=== PATIENT | male | born 1965 | race African-American/Black ===

== ENCOUNTER 2016-12-19 09:19 | Emergency (ER) | payer OTHER ==
[2016-12-19 09:41] VITALS: BP 122/75
--- NOTE | 2016-12-19 10:25 | ED Physician Documentation ---
Nausea/Vomiting/Diarrhea - HISTORIAN Historian: patient - HPI Stated Complaint: nausea vomiting diarrhea Chief Complaint: Nausea,Vomiting,Diarrhea Additional Information: this happens occasional after dialysis, he had dialysis yesterday. denies bad food Onset: hours Duration: constant Last known Well Code/Unknown Code: Unknown Timing: gradual onset Context: denies: out of country travel, bad food, recent trauma Severity: mild Further Comments: no - Associated Symptoms Vomiting: mild Diarrhea: mild Abdominal Pain: none - ROS CONST: none CVS/RESP: denies: chest pain, shortness of breath GI/: none EYES/ENT: none MS/SKIN/LYMPH: denies: joint pain NEURO/PSYCH: none - PAST HX Past History: none Other History: hypertension Allergies/Adverse Reactions: Allergies Allergy/AdvReac Type Severity Reaction Status Date / Time No Known Allergies Allergy Verified 12/19/16 10:01 Home Medications: Ambulatory Orders Medication Instructions Recorded Amlodipine Besylate [Norvasc] 05/17/12 Hydralazine HCl [APRESOLINE] 05/17/12 Isosorbide Mononitrate [Isosorbide 05/17/12 Mononitrate ER] Losartan Potassium [Cozaar] 05/17/12 Ondansetron HCl 8 mg PO Q8 #5 tablet 05/17/12 Sevelamer HCl [Renagel] 05/17/12 Simvastatin 05/17/12 - SOCIAL HX Smoking History: non-smoker Alcohol Use: none Drug Use: none - FAMILY HX Family History: none - VITAL SIGNS Vital Signs: Vital Signs Temp Pulse Resp BP Pulse Ox 100.1 F H 102 H 20 122/75 100 12/19/16 09:20 12/19/16 09:20 12/19/16 09:20 12/19/16 09:20 12/19/16 09:20 - REVIEWED ASSESSMENTS Nursing Assessment Reviewed: Yes Vitals Reviewed: Yes Progress - Progress Progress: spoke with his dialysis dr. Kapoor recieved. discussed with family ED Results Lab/Radiology - Lab Results Lab Results: Lab Results 12/19/16 12/19/16 10:25 10:25 WBC 4.80 K/ul K/ul (4.00-12.00) RBC 3.93 M/ul M/ul (3.90-5.20) Hgb 12.2 g/dL g/dL (12.0-18.0) Hct 38.6 % % (37.0-53.0) MCV 98.3 fl fl (80.0-100.0) MCH 31.0 pg pg (28.0-34.0) MCHC 31.5 g/dL g/dL (30.0-36.0) RDW 15.8 % H % (11.3-14.3) Plt Count 67 K/mm3 L K/mm3 (130-400) Seg Neutrophils % 70 % % (39-79) Band Neutrophils % 9 % % (0-12) Lymphocytes % 7 % L % (16-50) Monocytes % 8 % % (0-11) Eosinophils % 6 % % (0-7) Plt Morphology Comment Normal (NORMAL) Hypochromasia 1+ H (NEGATIVE) Macrocytosis 1+ H (NEGATIVE) RBC Morph Comment Abnormal H (NORMAL) Sodium 141 mmol/L mmol/L (136-145) Potassium 3.5 mmol/L mmol/L (3.5-5.0) Chloride 104 mmol/L mmol/L (98-110) Carbon Dioxide 29 mmol/L mmol/L (20-32) BUN 19 mg/dL mg/dL (10-26) Creatinine 5.4 mg/dL H mg/dL (0.4-1.5) Estimated Creat Clear 17 Est GFR ( Amer) 14 L (60 - ) Est GFR (Non-Af Amer) 12 L (60 - ) Glucose 132 mg/dL H mg/dL (70-99) Calcium 9.4 mg/dL mg/dL (8.5-10.5) Total Bilirubin 2.1 mg/dL H mg/dL (0.2-1.2) AST 26 U/L U/L (0-41) ALT 20 U/L U/L (0-45) Alkaline Phosphatase 153 U/L H U/L (46-116) Total Protein 6.6 g/dL g/dL (6.0-8.5) Albumin 3.5 g/dL g/dL (3.0-5.5) Amylase 72 U/L U/L (20-104) - Orders Orders: ED Orders Category Date Time Status Place IV Lock 1T Care 12/19/16 10:23 Active AMYLASE Routine Lab 12/19/16 10:25 Completed CBC/PLATELET/DIFF Routine Lab 12/19/16 10:25 Completed CMP Routine Lab 12/19/16 10:25 Completed LIPASE Routine Lab 12/19/16 10:25 Received URINALYSIS Routine Lab 12/19/16 Ordered 0.9 % Sodium Chloride [Normal Saline] Med 12/19/16 12:30 Ordered 1,000 ml IV 1T 0.9 % Sodium Chloride [Normal Saline] 1,000 ml Med 12/19/16 12:34 Discontinued IV .STK-MED 0.9 % Sodium Chloride [Normal Saline] 1,000 ml Med 12/19/16 12:52 Active IV Q1H Ondansetron HCl/Pf [Zofran 4 mg/2 ml] Med 12/19/16 11:02 Discontinued 4 mg .ROUTE .STK-MED ONE Ondansetron HCl/Pf [Zofran 4 mg/2 ml] Med 12/19/16 11:04 Discontinued 4 mg IVP NOW ONE Nausea Physical Exam - EXAM General Appearance: no acute distress, alert EENT: eye inspection normal, ENT inspection normal, pharynx normal Neck: normal inspection Respiratory: no resp distress CVS: tachycardia Abdomen: non-tender Back: non-tender Skin: warm/dry, normal color Extremities: non-tender Neuro/Psych: oriented X3 Discharge Clincal Impression: Nausea & vomiting Qualifiers: Vomiting type: unspecified Vomiting Intractability: intractable Qualified Code( s): R11.2 - Nausea with vomiting, unspecified Renal failure Qualifiers: Renal failure chronicity: chronic Chronic kidney disease stage: on chronic dialysis Qualified Code(s): N18.6 - End stage renal disease; Z99.2 - Dependence on renal dialysis Diarrhea Qualifiers: Diarrhea type: unspecified type Qualified Code(s): R19.7 - Diarrhea, unspecified Referrals: Leon Romero MD [Primary Care Provider] - 2 Days Condition: Stable Disposition: 01 HOME, SELF-CARE Decision to Admit: NO Date of Decison to Admit: 12/19/16 Decision Time: 13:12
[2016-12-19 10:33] LABS: MEAN CORPUSCULAR VOLUME 98.3 fl (80.0-100.0)
[2016-12-19 10:58] LABS: EOSINOPHILS % 6 % (0-7); HYPOCHROMASIA 1+ (NEGATIVE); MONOCYTES % 8 % (0-11); SEGMENTED NEUTROPHILS % 70 % (39-79)
[2016-12-19] MEDS ORDERED: ONDANSETRON HCL/PF 4 MG/ 2ML VIAL ONE (11:02)
[2016-12-19] MEDS ORDERED: ONDANSETRON HCL/PF 4 MG/ 2ML VIAL IVP ONE (11:04)
[2016-12-19] MEDS ORDERED: NORMAL SALINE 500 ML IV.SOLN IV SCH (12:30)
[2016-12-19] MEDS ORDERED: 0.9 % SODIUM CHLORIDE 1,000 ML IV ONE ×2 (12:34→12:52)
[2016-12-19 17:02] LABS: LIPASE 37 U/L (13-60)
== END 2016-12-19 13:50 | disposition home or self-care (01) ==
LOC: ED 09:19
DX: R11.2 Nausea with vomiting, unspecified (principal); N18.6 End stage renal disease; Z99.2 Dependence on renal dialysis; R19.7 Diarrhea, unspecified
CPT/HCPCS: 80053; 82150; 83690; 85025; J2405; J7030; 96361; 96374; 99283; S1016

== ENCOUNTER 2017-01-07 12:44 | Outpatient (CLI) | payer OTHER | END 2017-01-07 12:45 | LOC: CARD 12:44 | PROVIDERS: ATTEND Internal Medicine Cardiovascular Disease | DX: I25.10 Atherosclerotic heart disease of native coronary artery without angina pectoris (principal); I42.9 Cardiomyopathy, unspecified; Q21.1 Atrial septal defect; I27.0 Primary pulmonary hypertension; I07.1 Rheumatic tricuspid insufficiency; I10 Essential (primary) hypertension; E78.5 Hyperlipidemia, unspecified; E11.9 Type 2 diabetes mellitus without complications; E11.22 Type 2 diabetes mellitus with diabetic chronic kidney disease; N18.6 End stage renal disease | CPT/HCPCS: G0463 ==

== ENCOUNTER 2017-01-28 10:06 | Outpatient (CLI) | payer OTHER | END 2017-01-28 10:15 | LOC: LAB 10:06 | PROVIDERS: ATTEND Physician Assistant | DX: Z01.818 Encounter for other preprocedural examination (principal) | CPT/HCPCS: 36415; 85610 ==

== ENCOUNTER 2017-03-03 16:09 | Outpatient (CLI) | payer OTHER ==
[2017-03-03 17:33] LABS: BASOPHILS % 0.7 (0.0-1.5); EOSINOPHILS % 6.5 % (0.0-6.8); MONOCYTES % 9.4 % (0.0-11.0)
== END 2017-03-03 16:10 ==
LOC: LAB 16:09
PROVIDERS: ATTEND Family Medicine
DX: D69.6 Thrombocytopenia, unspecified (principal); R41.89 Other symptoms and signs involving cognitive functions and awareness; E55.9 Vitamin D deficiency, unspecified
CPT/HCPCS: 36415; 82306; 84439; 84443; 84481; 85025